=== PATIENT | female | born 1980 | race American Indian/Alaskan Native ===

== ENCOUNTER 2017-04-15 08:10 | Emergency (ER) | payer BC ==
[2017-04-15 08:30] VITALS: BP 138/90
--- NOTE | 2017-04-15 09:31 | Emergency Department Report ---
Chief Complaint: Neck Pain/Injury Stated Complaint: SOB/PRESSURE NECK AND JAW AREA Time Seen by Provider: 04/15/17 09:25 - HPI History of Present Illness: PT states last night, she was watching a movie and then she remembers waking up. PT states when she wok eup she had pressure on the L side of her neck. PT states she has had this neck pressure for months. PT states her PCP sent her to [facility] 3-4 weeks ago for evaluation of this. PT states she had an US of her neck. PT states she has not followed up on her results. - ROS Review of Systems: + neck pain + headache pt thinks she may have had a syncopal episode at home - cp - abd pain - nausea - Exam Vital Signs: Vital Signs 04/15/17 08:25 Temperature 98.1 F Pulse Rate 80 Respiratory 18 Rate Blood Pressure 138/90 O2 Sat by Pulse 100 Oximetry Physical Exam: PT looks well, non toxic No acute distress in triage. rrr, lungs cta MSE screening note: Focused history and physical exam performed. Due to findings the following was ordered: labs ED Disposition for MSE Condition: Stable
[2017-04-15 09:50] LABS: Basophils % (Auto) 0.4 % (0.0-1.8); Eosinophils % (Auto) 0.6 % (0.0-4.3); Hematocrit 38.8 % (30.3-42.9); Hemoglobin 12.8 gm/dl (10.1-14.3); Mean Corpuscular HGB Conc 33 % (30-34); Mean Corpuscular Hemoglobin 28 pg (28-32); Mean Corpuscular Volume 83 fl (79-97); Platelet Count 277 K/mm3 (140-440); Red Blood Count 4.66 M/mm3 (3.65-5.03); Red Cell Distribution Width 13.7 % (13.2-15.2)
[2017-04-15 10:37] LABS: Alanine Aminotransferase 10 units/L (7-56); Albumin 3.9 g/dL (3.9-5); Albumin/Globulin Ratio 1.3 %; Alkaline Phosphatase 65 units/L (35-129); Anion Gap 14 mmol/L; Blood Urea Nitrogen 14 mg/dL (7-17); Calcium 8.6 mg/dL (8.4-10.2); Carbon Dioxide 25 mmol/L (22-30); Chloride 101.6 mmol/L (98-107); Glucose 98 mg/dL (65-100); Sodium 137 mmol/L (137-145)
--- NOTE | 2017-04-15 11:14 | XRay Report ---
CHEST 2 VIEWS INDICATION: Shortness of breath. COMPARISON: None similar at this institution. FINDINGS: PA and lateral chest radiographs suggest top normal heart size. Clear lungs without pleural effusions or CHF. Intact bones. CONCLUSION: No acute chest process, as described. Please correlate. Thank you for the opportunity to participate in this patient's care.
== END 2017-04-15 10:40 | disposition left against medical advice (07) ==
LOC: ED 08:10
DX: R06.02 Shortness of breath (principal); M54.2 Cervicalgia; R07.81 Pleurodynia; Z53.21 Procedure and treatment not carried out due to patient leaving prior to being seen by health care provider
CPT/HCPCS: 36415; 71020; 80053; 84443; 84484; 84703; 85025; 93005; 93010